=== PATIENT | male | born 1990 | race Caucasian/White ===

== ENCOUNTER 2022-11-10 18:33 | Emergency (ER) | payer BC ==
[~2022-11-10] VITALS: Ht 175.3 cm; Wt 92.5 kg
[~2022-11-10 18:33] MED LIST: ACET325 PO; AMOX500 PO; CETYLOZ PO; CRUTCH4 USE; Cleocin HCl300 MG PO; DICY20 PO; DULO30 PO; FLUO20 PO; HYDACE5 PO; HYDACE5325 PO; IBUP600 PO; IBUP800 PO; LOPE2C PO; NAPR500 PO; Naprosyn500 MG PO; Norco 5-325 Ta1 EACH PO; PENVK250 PO; PENVK500 PO; PROM25 PO; Peridex480 ML SS; RXTRAM50 PO; TRAM50 PO; Ultram50 MG PO; Veetids 500500 MG PO; Zofran4 MG PO
== END 2022-11-10 20:23 | disposition home or self-care (01) ==
LOC: ER 18:33
DX: S20.469A Insect bite (nonvenomous) of unspecified back wall of thorax, initial encounter (principal); F17.200 Nicotine dependence, unspecified, uncomplicated; W57.XXXA Bitten or stung by nonvenomous insect and other nonvenomous arthropods, initial encounter; Z79.899 Other long term (current) drug therapy
CPT/HCPCS: 99282